=== PATIENT | female | born 1965 | race Caucasian/White ===

== ENCOUNTER 2018-01-30 09:34 | Day surgery (SDC) | payer BC, OTHER ==
[~2018-01-30] VITALS: Ht 172.7 cm; Wt 71.9 kg
[2018-01-30] MEDS ORDERED: SODIUM CHLORIDE 0.9% 1,000 ML IV SCH (09:39)
[2018-01-30 09:41] VITALS: BP 135/82
[2018-01-30] MEDS ORDERED: INSU100V8 SQ (09:57)
[2018-01-30] MEDS ORDERED: PROG100C2 PO (09:59)
[2018-01-30] MEDS ORDERED: ATOR40TA78 PO (09:59)
[2018-01-30] MEDS ORDERED: MIDAZOLAM 1 MG/ML, 5ML ONE (10:11)
[2018-01-30] MEDS ORDERED: LIDOCAINE 2%, 2ML ONE (10:12)
[2018-01-30] MEDS ORDERED: ISOPROTERENOL 0.2MG/ML, 5ML ONE (10:12)
[2018-01-30] MEDS ORDERED: ADENOSINE 6 MG/2 ML ONE (10:12)
[2018-01-30] MEDS ORDERED: FENTANYL PF 100 MCG/2ML ONE (10:12)
[2018-01-30] MEDS ORDERED: ONDANSETRON 2MG/ML, 2ML IVPush PRN (14:30)
[2018-01-30] MEDS ORDERED: ACETAMINOPHEN 325 MG TABLET PO PRN (14:30)
[2018-01-30] MEDS ORDERED: INSULIN GLARGINE 100 UNITS/ML, PEN SQ-INSULIN SCH (14:30)
[2018-01-30 19:02] VITALS: BP 127/76
[2018-01-30] MEDS ORDERED: ATORVASTATIN 40 MG TABLET PO SCH (21:00)
[2018-01-31] MEDS ORDERED: PROGESTERONE 100 MG CAPSULE PO SCH (09:00)
== END 2018-01-30 20:05 | disposition home or self-care (01) ==
LOC: CACL 09:34 → 5SO 15:00 → CACL 20:05
PROVIDERS: ATTEND Internal Medicine Cardiovascular Disease
DX: I47.1 Supraventricular tachycardia (principal)
CPT/HCPCS: 93613; 93621; 93623; 93653; 93655; 99156; 99157; C1730; C1766; C1894; C2630; J2250; J3010; J3490; J0153